=== PATIENT | female | born 1990 | race Asian ===

== ENCOUNTER 2017-11-28 19:24 | Emergency (ER) | payer MEDICAID ==
--- NOTE | 2017-11-28 20:29 | ED ---
Laceration/Wound HPI - HPI Summary HPI Summary: 27-year-old female presents ER with complaints of a left ankle laceration that she sustained just prior to arrival. States she was in [employer] when it glass candle broke she was attempting to push the glass out of with her foot when one cut her ankle. She states her tetanus is up-to-date. Language barrier however was able to speak [place] and translate. Minimal bleeding no foreign body able to walk and bear weight. No other complaints or concerns. No past medical history. Not on blood thinners. - History of Current Complaint Stated Complaint: LT FT LAC Time Seen by Provider: 11/28/17 19:41 Hx Obtained From: Patient Mechanism of Injury: Sharp/Blunt Trauma - glass Onset/Duration: Sudden Onset Aggravating: Movement Alleviating: Compression Timing: Constant Onset Severity: Mild Current Severity: None Pain Intensity: 1 Pain Scale Used: 0-10 Numeric Associated Signs & Symptoms: Negative - Allergy/Home Medications Allergies/Adverse Reactions: Allergies Allergy/AdvReac Type Severity Reaction Status Date / Time No Known Allergies Allergy Verified 11/28/17 21:05 PMH/Surg Hx/FS Hx/Imm Hx Endocrine/Hematology History: Denies: Hx Anticoagulant Therapy, Hx Diabetes Cardiovascular History: Denies: Hx Hypertension Respiratory History: Denies: Hx Asthma - Surgical History Surgery Procedure, Year, and Place: n/a - Immunization History Date of Tetanus Vaccine: UTD per patient Infectious Disease History: No Infectious Disease History: Denies: Traveled Outside the [place] in Last 30 Days - Family History Known Family History: Positive: None - Social History Alcohol Use: None Substance Use Type: Reports: None Smoking Status (MU): Never Smoked Tobacco Review of Systems Constitutional: Negative Cardiovascular: Negative Respiratory: Negative Positive: Other - laceration Neurological: Negative All Other Systems Reviewed And Are Negative: Yes Physical Exam Triage Information Reviewed: Yes Vital Signs On Initial Exam: Initial Vitals Temp Pulse Resp BP Pulse Ox 98.4 F 88 20 107/70 98 11/28/17 19:36 11/28/17 19:36 11/28/17 19:36 11/28/17 19:36 11/28/17 19:36 Vital Signs Reviewed: Yes Appearance: Positive: Well-Appearing, No Pain Distress, Well-Nourished Skin: Positive: Warm, Skin Color Reflects Adequate Perfusion, Dry, Erythema @ - In between toes of left foot erythema with whitish clumpy discharge appears similar to tinea pedis, Other - 6 cm linear laceration to the medial left ankle with minimal bleeding and no foreign body subcutaneous adipose tissue exposed however no muscle, tendon or bone.. Negative: Cold, Pale Head/Face: Positive: Normal Head/Face Inspection Eyes: Positive: EOMI, REESE ENT: Positive: Hearing grossly normal Neck: Positive: Supple Respiratory/Lung Sounds: Positive: Clear to Auscultation, Breath Sounds Present. Negative: Rales, Rhonchi, Wheezes Cardiovascular: Positive: Normal, RRR, Pulses are Symmetrical in both Upper and Lower Extremities. Negative: Murmur, Rub Abdomen Description: Positive: Nontender Musculoskeletal: Positive: Normal, Strength/ROM Intact. Negative: Limited @, Interruption @, Pain @, Edema Left, Edema Right Neurological: Positive: Normal, Sensory/Motor Intact, Alert, Oriented to Person Place, Time, NV Bundle Intact Distally, Normal Gait Procedures - Laceration/Wound Repair 1 Location: lower extremity - medial left ankle Description: Linear Anesthesia: Local, 1.0%, Lido Length, Depth and Shape: 6 cm linear laceration to medial left ankle through subcutaneous tissue Betadine Prep?: Yes Irrigated w/ Saline (ccs): 100 Laceration/Wound Explored: clean, no foreign body removed Closure: Single Layer Suture Type: Nylon - 5-0 Number of Sutures: 5 Layer Closure?: No Sterile Dressing Applied?: Yes Diagnostics - Vital Signs Vital Signs Temp Pulse Resp BP Pulse Ox 11/28/17 19:36 98.4 F 88 20 107/70 98 - Laboratory Lab Statement: Any lab studies that have been ordered have been reviewed, and results considered in the medical decision making process. Laceration Repair Course/Dx - Course Course Of Treatment: Laceration was irrigated thoroughly. Closed with 5 simple interrupted sutures without complication. Patient tolerated procedure well. Sterile fashion was performed. Tetanus is up-to-date per patient. Keep clean and dry. Keep dressing 48 hours. Triple antibiotic ointment. Also noted Tinea pedis, treat with clotrimazole. Sutures removed in 7-10 days. Aware worsening signs and symptoms watch out for such as infection. No other concerns or complaints - Differential Dx Differental Diagnoses: Laceration, Other - Tinea pedis - Clinical Impression Provider Diagnoses: Laceration of ankle, Tinea pedis Discharge - Sign-Out/Discharge Documenting (check all that apply): Discharge/Admit/Transfer - Discharge Plan Condition: Improved Disposition: HOME Prescriptions: Clotrimazole 1% CREAM* [Clotrimazole 1%*] 1 applic TOPICAL BID #1 tube Patient Education Materials: Care For Your Stitches (ED), Laceration (ED), Athlete's Foot (ED) Referrals: No Primary Care Phys,NOPCP [Primary Care Provider] - Additional Instructions: Keep dressing applied to laceration for 48 hours. Do not get wet. After 48 hours remove dressing apply triple antibiotic ointment given to you in the ER and redress. Have stitches removed in 7-10 days. Any new or worsening symptoms such as signs of infection such as redness, swelling, discharge please seek medical attention. Keep laceration clean and dry. Follow-up with primary care provider Apply prescribed cream to the toe infection only for 10 days, or until symptoms improve. Refrain from wet/sweaty socks, apply baby powder in shoes. Good hygiene. - Billing Disposition and Condition Condition: IMPROVED Disposition: Home
[2017-11-28 21:49] VITALS: BP 105/71
== END 2017-11-28 21:47 | disposition home or self-care (01) ==
LOC: ED 19:24
DX: S91.012A Laceration without foreign body, left ankle, initial encounter (principal); W25.XXXA Contact with sharp glass, initial encounter; Y92.512 Supermarket, store or market as the place of occurrence of the external cause; B35.3 Tinea pedis
CPT/HCPCS: 12002; 99282

== ENCOUNTER 2017-12-08 13:55 | Emergency (ER) | payer MEDICAID, OTHER ==
--- NOTE | 2017-12-08 15:00 | ED ---
Skin Complaint - HPI Summary HPI Summary: Pt here for suture removal. Sutures were placed on 11/28 to the instep of her foot from a cut on glass. No s/sx infection. Itchy, healing well. Denies numbness, tingling, weakness, fever, chills. She is able to bear weight w/o difficulty. - History of Current Complaint Chief Complaint: EDLacSutureRecheck Time Seen by Provider: 12/08/17 14:58 Stated Complaint: NEEDS STITCHES OUT Hx Obtained From: Patient, Family/Ballistician - male partner Pain Intensity: 0 - Allergy/Home Medications Allergies/Adverse Reactions: Allergies Allergy/AdvReac Type Severity Reaction Status Date / Time No Known Allergies Allergy Verified 12/08/17 14:29 PMH/Surg Hx/FS Hx/Imm Hx Previously Healthy: Yes Endocrine/Hematology History: Denies: Hx Anticoagulant Therapy, Hx Diabetes Cardiovascular History: Denies: Hx Hypertension Respiratory History: Denies: Hx Asthma - Surgical History Surgery Procedure, Year, and Place: n/a - Immunization History Date of Tetanus Vaccine: UTD per patient Infectious Disease History: Unable to Obtain/Confirm Infectious Disease History: Denies: Traveled Outside the [place] in Last 30 Days - Family History Known Family History: Positive: None - Social History Lives: With Family Alcohol Use: None Hx Substance Use: No Substance Use Type: Reports: None Hx Tobacco Use: No Smoking Status (MU): Never Smoked Tobacco Review of Systems Constitutional: Negative Musculoskeletal: Negative Skin: Other - lac Neurological: Negative Psychological: Normal All Other Systems Reviewed And Are Negative: Yes Physical Exam Triage Information Reviewed: Yes Vital Signs On Initial Exam: Initial Vitals Temp Pulse Resp BP Pulse Ox 97.9 F 79 16 100/50 98 12/08/17 14:26 12/08/17 14:26 12/08/17 14:26 12/08/17 14:26 12/08/17 14:26 Vital Signs Reviewed: Yes Appearance: Positive: Well-Appearing, No Pain Distress, Well-Nourished Skin: Positive: Warm, Skin Color Reflects Adequate Perfusion, Dry - laceration is dry and well approximated - appears to be healing well however tissue is still in most areas when pressured is applied - no erythema, no edema , no draniage, no streaking Head/Face: Positive: Normal Head/Face Inspection ENT: Positive: Hearing grossly normal Respiratory/Lung Sounds: Positive: Breath Sounds Present Cardiovascular: Positive: Pulses are Symmetrical in both Upper and Lower Extremities Musculoskeletal: Positive: Strength/ROM Intact Neurological: Positive: Sensory/Motor Intact Psychiatric: Positive: Normal Diagnostics - Vital Signs Vital Signs Temp Pulse Resp BP Pulse Ox 12/08/17 14:26 97.9 F 79 16 100/50 98 - Laboratory Lab Statement: Any lab studies that have been ordered have been reviewed, and results considered in the medical decision making process. Course/Dx - Course Course Of Treatment: Discussed w/ pt and male partner she should wait at lest 4 more days before considering to have sutures removed as the wound could dehiss based on current status plus location. They agree to f/u and continues to implement good wound care as well as monitor for s/sx of infection of which there are none today. - Diagnoses Provider Diagnoses: Encounter for wound re-check Discharge - Sign-Out/Discharge Documenting (check all that apply): Discharge/Admit/Transfer - Discharge Plan Condition: Stable Disposition: HOME Patient Education Materials: Care For Your Stitches (ED) Referrals: No Primary Care Phys,NOPCP [Primary Care Provider] - Additional Instructions: Return to ED or go to Care [facility] in 4-5 more days for suture removal. Continue to address wound care as originally discussed *if you develop redness, swelling or purulent drainage, fever, chills, streaking in the meantime, return to ED - Billing Disposition and Condition Condition: STABLE Disposition: Home
[2017-12-08 15:28] VITALS: BP 00/0
== END 2017-12-08 15:25 | disposition home or self-care (01) ==
LOC: ED 13:55
DX: S91.319D Laceration without foreign body, unspecified foot, subsequent encounter (principal); W25.XXXD Contact with sharp glass, subsequent encounter
CPT/HCPCS: 99281

== ENCOUNTER 2017-12-15 13:07 | Emergency (ER) | payer OTHER ==
--- NOTE | 2017-12-15 14:22 | ED ---
Skin Complaint - HPI Summary HPI Summary: Patient is a 27-year-old female presenting to the ED requesting suture removal. Sutures were placed 18 days ago. She had a recheck and the sutures were not ready to be dislodged. The wound is healing well, however there is a small amount of erythema around the area which the patient states is new as of today. Denies any fevers, sweats, chills. Denies any pain to the area. Denies any crusting to the area. - History of Current Complaint Chief Complaint: EDLacSutureRecheck Time Seen by Provider: 12/15/17 13:19 Stated Complaint: STICHES REMOVAL Hx Obtained From: Patient Timing: Constant Pain Intensity: 0 Related History: Trauma - Allergy/Home Medications Allergies/Adverse Reactions: Allergies Allergy/AdvReac Type Severity Reaction Status Date / Time No Known Allergies Allergy Verified 12/15/17 13:10 PMH/Surg Hx/FS Hx/Imm Hx Previously Healthy: Yes Endocrine/Hematology History: Denies: Hx Anticoagulant Therapy, Hx Diabetes Cardiovascular History: Denies: Hx Hypertension Respiratory History: Denies: Hx Asthma - Surgical History Surgery Procedure, Year, and Place: n/a - Immunization History Date of Tetanus Vaccine: UTD per patient Hx Pertussis Vaccination: No Immunizations Up to Date: Unable to Obtain/Confirm Infectious Disease History: No Infectious Disease History: Denies: Traveled Outside the [place] in Last 30 Days - Family History Known Family History: Positive: None - Social History Occupation: Unemployed Lives: With Family Alcohol Use: None Hx Substance Use: No Substance Use Type: Reports: None Hx Tobacco Use: No Smoking Status (MU): Never Smoked Tobacco Review of Systems Constitutional: Negative Negative: Fever, Chills, Fatigue Negative: Palpitations, Chest Pain Negative: Shortness Of Breath, Cough Genitourinary: Negative Positive: no symptoms reported, see HPI Negative: Arthralgia, Myalgia Positive: Other - 4cm healing laceration. Negative: Rash, Bruising Psychological: Normal All Other Systems Reviewed And Are Negative: Yes Physical Exam Triage Information Reviewed: Yes Vital Signs On Initial Exam: Initial Vitals Temp Pulse Resp BP Pulse Ox 99 F 88 16 98/60 97 12/15/17 13:10 12/15/17 13:10 12/15/17 13:10 12/15/17 13:10 12/15/17 13:10 Vital Signs Reviewed: Yes Appearance: Positive: Well-Appearing, No Pain Distress, Well-Nourished Skin: Positive: Warm, Skin Color Reflects Adequate Perfusion, Other - 4cm laceration Head/Face: Positive: Normal Head/Face Inspection Eyes: Positive: EOMI, REESE, Conjunctiva Clear Neck: Positive: Supple, No Lymphadenopathy Respiratory/Lung Sounds: Positive: Clear to Auscultation, Breath Sounds Present Cardiovascular: Positive: RRR, Pulses are Symmetrical in both Upper and Lower Extremities Musculoskeletal: Positive: Normal, Strength/ROM Intact Neurological: Positive: Sensory/Motor Intact, Alert, Oriented to Person Place, Time, Speech Normal Psychiatric: Positive: Affect/Mood Appropriate AVPU Assessment: Alert Diagnostics - Vital Signs Vital Signs Temp Pulse Resp BP Pulse Ox 12/15/17 13:10 99 F 88 16 98/60 97 - Laboratory Lab Statement: Any lab studies that have been ordered have been reviewed, and results considered in the medical decision making process. Course/Dx - Course Course Of Treatment: 5 sutures were removed successfully. The area appears to be slightly red around the sutures. Patient will be placed on 5 days of Keflex as a cellulitis prophylaxis. 3 Steri-Strips placed to keep the skin intact 5 days. - Diagnoses Provider Diagnoses: Visit for suture removal Discharge - Sign-Out/Discharge Documenting (check all that apply): Discharge/Admit/Transfer - Discharge Plan Condition: Stable Disposition: HOME Prescriptions: Cephalexin CAP* [Keflex CAP*] 500 mg PO BID #10 cap MDD 2 Cephalexin CAP* [Keflex CAP*] 500 mg PO BID #10 cap MDD 2 Referrals: No Primary Care Phys,NOPCP [Primary Care Provider] - Additional Instructions: Keflex twice daily 5 days Keep Steri-Strips applied 3-5 days - Billing Disposition and Condition Condition: STABLE Disposition: Home
[2017-12-15 14:24] VITALS: BP 98/62
== END 2017-12-15 14:23 | disposition home or self-care (01) ==
LOC: ED 13:07
DX: T14.8XXD Other injury of unspecified body region, subsequent encounter (principal); X58.XXXD Exposure to other specified factors, subsequent encounter; Y92.9 Unspecified place or not applicable
CPT/HCPCS: 99281